=== PATIENT | female | born 1975 | race Caucasian/White ===

== ENCOUNTER 2021-03-28 11:04 | Outpatient (CLI) | payer OTHER, SELFPAY ==
--- NOTE | ~2021-03-28 | XR_ITS ---
EXAMINATION: XR forearm RT 2V EXAM DATE: 03/28/2021 11:44 INDICATION: Pain RT forearm, cervicalgia, thoracic pain, URI TECHNIQUE: Right forearm frontal and lateral projections obtained and reviewed. There is no prior st udy for comparison. FINDINGS: There are no acute right forearm fractures or dislocations identified. There is no subcuta neous gas. The soft tissue is unremarkable. There are no radiopaque foreign bodies. IMPRESSION: 1. Unremarkable XR forearm RT 2V exam. Reviewed, dictated and finalized at location B. 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
--- NOTE | ~2021-03-28 | XR_ITS ---
EXAMINATION: XR_CERV2-3V_CR EXAM DATE: 03/28/2021 11:44 INDICATION: No known recent injury provided at this time. Pain of the cervical spine. TECHNIQUE: Cervical spine frontal, lateral, lateral swimmers, and open-mouth odontoid projections. There is no prior study for comparison. FINDINGS: There is moderate loss of the C5-6 disc height, mild to moderate C6-7 and C7-T1. Mild cerv ical levocurvature, could be positional. Mild to moderate cervical arthropathy. The vertebral bodies are aligned in the AP dimension. The odontoid process is intact. The lateral masses of C1 line up wi th C2. Paraspinal soft tissue is unremarkable. IMPRESSION: 1. Mild to moderate cervical spondylosis. Reviewed, dictated and finalized at location B. 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
--- NOTE | ~2021-03-28 | XR_ITS ---
EXAMINATION: XR thoracic spine 3V EXAM DATE: 03/28/2021 11:44 INDICATION: pain RT forearm, cervicalgia, thoracic pain, URI . TECHNIQUE: Frontal and lateral projections of the thoracic spine as well as lateral swimmers projecti on of the upper thoracic spine for interpretation. There is no prior study for comparison. FINDINGS: Paraspinal soft tissue is unremarkable. Mild mid thoracic spondylosis. The vertebral taz s are aligned in the AP dimension. There are no bony erosions identified. IMPRESSION: Mild mid thoracic spondylosis. Reviewed, dictated and finalized at location B. 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
--- NOTE | ~2021-03-28 | XR_ITS ---
EXAMINATION: XR chest 2V EXAM DATE: 03/28/2021 11:44 INDICATION: Pain RT forearm, cervicalgia, thoracic pain, URI . TECHNIQUE: Frontal and lateral projections of the chest obtained and reviewed. Comparison is made to prior examination from 07/12/2018. FINDINGS: The lungs are clear. There are no pleural effusions. The cardiomediastinal silhouette is within normal limits. There is no pneumothorax suspected. The bones and soft tissues are unremarkab le. IMPRESSION: No acute cardiopulmonary findings. Reviewed, dictated and finalized at location B. 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
[2021-03-28 12:34] LABS: Cholesterol 177 mg/dL (0-200); HDL Direct 32 mg/dL; Triglycerides 70 mg/dL (<150)
[2021-03-28 12:45] LABS: LDL Cholesterol Direct 131 mg/dL
== END 2021-03-28 11:05 | disposition home or self-care (01) ==
PROVIDERS: PCP Physician Assistant; Visit Provider Physician Assistant
DX: M79.631 Pain in right forearm (principal); M54.2 Cervicalgia; M54.6 Pain in thoracic spine; J06.9 Acute upper respiratory infection, unspecified; M47.814 Spondylosis without myelopathy or radiculopathy, thoracic region; M47.812 Spondylosis without myelopathy or radiculopathy, cervical region
CPT/HCPCS: 36415; 71046; 72040; 72072; 73090; 80061

== ENCOUNTER 2023-03-19 09:00 | Outpatient (CLI) | payer OTHER, SELFPAY ==
--- NOTE | 2023-03-19 12:21 | WPDPFTINT ---
PFT Procedure Performed PFT Procedure Performed Spirometry with Pre/Post Bronchodilator Plethysmography (Lung Vol) Diffusing Cap (DLCO) Flow Vol Loop PFT Interpretation This is a pulmonary function test with pre and post-bronchodilator spirometry, plethysmography and diffusing capacity. The test was performed and results interpreted in accordance with the 2019 and 2005 ATS/ERS Task Force guidelines respectively using the Global Lung Function Initiative-2012 reference equations. Patient demonstrated good effort and cooperation. Reproducibility criteria were met. The quality of the pre bronchodilator spirometry maneuver was Grade A and post bronchodilator spirometry maneuver was Grade A. Findings: Spirometry: The contour the inspiratory and expiratory flow tracing are normal. The pre bronchodilator FVC is 2.29 L, 72% predicted. The pre bronchodilator FEV1 is 1.78 L, 69% predicted. The pre bronchodilator FEV1: FVC ratio is 77%. The post bronchodilator FVC is 2.59 L, representing a 13% increase. The post bronchodilator FEV1 is 1.96 L, representing an 11% increase. The post bronchodilator FEV1: FVC ratio 76%. Plethysmography: The total lung capacity is 3.63 L, 79% predicted. The functional residual capacity is 2.02 L, 79% predicted. The residual volume is 1.28 L, 81% predicted. Diffusing capacity: The diffusing capacity unadjusted for hemoglobin and carboxyhemoglobin is 12.1, 55% predicted. The diffusing capacity adjusted for alveolar volume is 3.68, 77% predicted. Impression: The spirometry is normal without evidence of an obstructive abnormality. The lung volumes are normal without evidence of and restrictive abnormality. The FVC is mildly decreased and the FEV1 is moderately decreased without an obstructive or restrictive abnormality. This is an abnormal but nonspecific finding. There is significant improvement after inhaling a single dose of albuterol. The diffusing capacity unadjusted for hemoglobin and carboxyhemoglobin is moderately decreased and normalizes when adjusted for alveolar volume. There are no prior studies for comparison
== END 2023-03-19 09:01 | disposition home or self-care (01) ==
LOC: ANHPFT 09:01
PROVIDERS: PCP Physician Assistant; Visit Provider Physician Assistant
DX: J44.9 Chronic obstructive pulmonary disease, unspecified (principal)
CPT/HCPCS: 94060; 94726; 94729

== ENCOUNTER 2023-05-29 07:49 | Outpatient (CLI) | payer OTHER, SELFPAY ==
--- NOTE | ~2023-05-29 | US_ITS ---
EXAMINATION: US aorta [facility] scr[facility] DATE: 05/29/2023 08:56 INDICATION: Abdominal aortic aneurysm screening with risk factors of nicotine dependence. TECHNIQUE: Grayscale, color Doppler, and pulsed Doppler images of the aorta and common iliac arteries were obtained. COMPARISON: None. FINDINGS: The proximal aorta measures 1.8 cm in AP diameter. The mid aorta measures 1.3 cm AP. The distal aorta measures 1.0 cm AP. The right common iliac artery measures 5 mm. The left common iliac artery measur es 6 mm. IMPRESSION: 1. Normal caliber abdominal aorta. Reviewed, dictated and finalized at location B.
--- NOTE | ~2023-05-29 | CT_ITS ---
EXAMINATION: CT lung screening DATE: 05/29/2023 08:14 INDICATION: NICOTINE DEPENDENT TECHNIQUE: Computed tomography (CT) of the chest was performed without intravenous contrast. Addition al 3D reconstructions utilizing coronal maximum intensity projection (MIP) were performed. Automated exposure control and iterative reconstruction technique were employed. The dose-length product was 56 .24 mGy-cm. COMPARISON: None FINDINGS: Mild emphysema. 2-3 mm left upper lobe nodule on series 4, image 31. No other suspicious pulmonary no dules, pneumonia, pulmonary edema or pleural effusion. Heart size is normal. No pericardial effusion. Normal caliber thoracic aorta. No pathologically enlarged thoracic lymphadenopathy. Visualized upper abdomen is unremarkable. Minimal thoracic dextrocurvature with mild to moderate spondylosis. Small s clerotic bone island at T5. IMPRESSION: 1. Lung-RADS category 2: Benign appearance or behavior. Continue annual screening with noncontrast lo w-dose chest CT in 12 months. Reviewed, dictated and finalized at location B. IMPRESSION: 1. Lung-RADS category 2: Benign appearance or behavior. Continue annual screeni ng with noncontrast low-dose chest CT in 12 months.
== END 2023-05-29 07:50 | disposition home or self-care (01) ==
PROVIDERS: PCP Physician Assistant; Visit Provider Physician Assistant
DX: Z12.2 Encounter for screening for malignant neoplasm of respiratory organs (principal); Z87.891 Personal history of nicotine dependence; Z13.6 Encounter for screening for cardiovascular disorders
CPT/HCPCS: 71271; 76706

== ENCOUNTER 2023-06-10 09:51 | Outpatient (CLI) | payer OTHER, SELFPAY ==
--- NOTE | 2023-06-10 11:00 | NEURO_ITS ---
Impression: # Complains of right wrist pain; possible Carpal Tunnel Syndrome. # Normal Nerve Conduction Study; No Carpal Tunnel Syndrome or ulnar neuropathy. # Normal needle/EMG exam. # Clinical correlation recommended. Nerve Conduction Studies Anti Sensory Summary Table Stim Site NR Peak (ms) P-T Amp (?V) Site1 Site2 Delta-P (ms) Dist (cm) Bishop (m/s) Right Median Anti Sensory (2-3nd Digit) Wrist 2.2 78.8 Wrist 2-3nd Digit 2.2 14.0 64 Wrist 2.1 87.7 Wrist 2-3nd Digit 2.2 14.0 64 Right Radial Anti Sensory (Base 1st Digit) Wrist 1.9 38.2 Wrist Base 1st Digit 1.9 0.0 Right Ulnar Anti Sensory (5th Digit) Wrist 2.1 75.7 Wrist 5th Digit 2.1 14.0 67 Motor Summary Table Stim Site NR Onset (ms) O-P Amp (mV) Site1 Site2 Delta-0 (ms) Dist (cm) Bishop (m/s) Right Median Motor (Abd Poll Brev) Wrist 2.6 6.2 Elbow Wrist 4.4 28.0 64 Elbow 7.0 5.2 Right Ulnar Motor (Abd Dig Minimi) Wrist 2.0 7.8 A Elbow Wrist 4.7 28.0 60 A Elbow 6.7 7.4 F Wave Studies NR F-Lat (ms) L-R F-Lat (ms) Right Median (Mrkrs) (Abd Poll Brev) 23.59 Right Ulnar (Mrkrs) (Abd Dig Min) 23.93 EMG Side Muscle Nerve Root Ins Act Fibs Amp Dur Recrt Comment Right 1stDorInt Ulnar C8-T1 Nml Nml Nml Nml Nml Right Ext Indicis Radial (Post Int) C7-8 Nml Nml Nml Nml Nml Right Ext Digitorum Radial (Post Int) C7-8 Nml Nml Nml Nml Nml Right BrachioRad Radial C5-6 Nml Nml Nml Nml Nml Right PronatorTeres Median C6-7 Nml Nml Nml Nml Nml Right Abd Poll Brev Median C8-T1 Nml Nml Nml Nml Nml Right ABD Dig Min Ulnar C8-T1 Nml Nml Nml Nml Nml MTDD
== END 2023-06-10 09:52 | disposition home or self-care (01) ==
LOC: ANHNEURO 09:52
PROVIDERS: PCP Physician Assistant; Visit Provider Physician Assistant
DX: G56.01 Carpal tunnel syndrome, right upper limb (principal)
CPT/HCPCS: 95886; 95909

== ENCOUNTER 2023-06-23 13:49 | Outpatient (CLI) | payer OTHER, SELFPAY ==
--- NOTE | ~2023-06-23 | MM_ITS ---
EXAMINATION: MM screening bubba BI w carina HISTORY: Screening mammogram TECHNIQUE: Craniocaudal and mediolateral oblique 3-D tomosynthesis images were obtained and synthetic 2-D images were generated. CAD analysis was submitted and interpreted. COMPARISON: No prior mammogram is available for comparison at this institution. BREAST PARENCHYMAL COMPOSITION: There are scattered areas of fibroglandular density. FINDINGS: There is no evidence of suspicious mass, calcification, or architectural distortion to sugg est malignancy in either breast. IMPRESSION: 1. No mammographic evidence of malignancy. 2. Recommend routine screening mammography in one year. BI-RADS Category 1: Negative Reviewed, dictated and finalized at location B.
== END 2023-06-23 13:50 | disposition home or self-care (01) ==
LOC: ANHIMG 13:50
PROVIDERS: PCP Physician Assistant; Visit Provider Physician Assistant
DX: Z12.31 Encounter for screening mammogram for malignant neoplasm of breast (principal)
CPT/HCPCS: 77063; 77067

== ENCOUNTER 2024-01-25 15:12 | Outpatient (CLI) | payer BC, MEDICAID, SELFPAY ==
--- NOTE | 2024-01-25 | ECG_ITS ---
Test Date: 2024-01-25 15:54:39 Measurements Intervals Reform Rate: 80 P: 68 MD: 124 QRS: 26 QRSD: 79 T: 39 QT: 357 QTc: 414 Interpretive Statements SINUS RHYTHM POSSIBLE RIGHT ATRIAL ENLARGEMENT [0.25mV P-WAVE] POSSIBLE LEFT ATRIAL ENLARGEMENT [-0.1mV P-WAVE IN V1/V2] POSSIBLE RIGHT VENTRICULAR CONDUCTION DELAY [RSR (QR) IN V1/V2] No previous ECG available for comparison Electronically Signed On 01-26-2024 14:46:33 MOTOR WINDER by Raegan Cabrera M.D.
--- NOTE | ~2024-01-25 | XR_ITS ---
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 RESULT: Lines, tubes, and devices: None. Lungs and pleura: Clear. Cardiomediastinal silhouette: Stable. Other: No acute osseous or upper abdominal finding. IMPRESSION: No acute cardiopulmonary process. Reviewed, dictated and finalized at location K. ORK OPERATIONS LEAD
== END 2024-01-25 15:13 | disposition home or self-care (01) ==
PROVIDERS: PCP Physician Assistant; Visit Provider Physician Assistant
DX: R05.9 Cough, unspecified (principal); R94.31 Abnormal electrocardiogram [ECG] [EKG]
CPT/HCPCS: 71046; 93005

== ENCOUNTER 2024-02-19 07:32 | Outpatient (CLI) | payer BC, MEDICAID, SELFPAY ==
--- NOTE | 2024-02-19 | ECHO_ITS ---
Patient Info Name: Danuta Magana Age: 48 years : 1975 Gender: Female Ht: 61 in Wt: 120 lbs BSA: 1.54 m2 HR: 95 bpm BP: 121 / 83 mmHg Technical Quality: Good Exam Date: 02/19/2024 8:05 AM Exam Location: Echo Lab Patient Status: Outpatient Admit Date: 02/19/2024 Staff Ordering Physician: Mike, Mireille BETANCOURT Manuscripts Curator: Reina Blair RDCS Attending Provider: Mike, Mireille BETANCOURT Referring Physician: Mike GOEL; Exam Type: CA echo doppler color flow Study Info Indications I51.7 - Cardiomegaly Complete two-dimensional, color flow and Doppler transthoracic echocardiogram is performed. Strain analysis performed. Summary 1. Complete two-dimensional, color flow and Doppler transthoracic echocardiogram is performed. 2. Left ventricular chamber dimension is normal. 3. Left ventricular systolic function is normal with an ejection fraction by Biplane Method of Discs of 57 %. GLS decreased. 4. There is no increased left ventricular wall thickness. 5. The left ventricular diastolic function is grade I diastolic dysfunction. 6. Right ventricular chamber dimension is normal. 7. Right ventricular systolic function is normal. 8. There is no aortic valve stenosis. 9. There is no mitral valve regurgitation. 10. No pulmonary hypertension, estimated pulmonary arterial systolic pressure is 25 mmHg. 11. There is mild tricuspid valve regurgitation. Left Ventricle Left ventricular chamber dimension is normal. Left ventricular systolic function is normal with an ejection fraction by Biplane Method of Discs of 57 %. GLS decreased. There is no increased left ventricular wall thickness. The left ventricular diastolic function is grade I diastolic dysfunction. Right Ventricle Right ventricular chamber dimension is normal. Right ventricular systolic function is normal. Left Atria Left atrial chamber dimension is normal. Right Atria Right atrial chamber dimension is normal. Aortic Valve The aortic valve is trileaflet. There is no aortic valve stenosis. There is no aortic valve regurgitation. Pulmonic Valve The pulmonic valve is normal. Mitral Valve The mitral valve has normal leaflets. There is no mitral valve stenosis. There is no mitral valve regurgitation. Tricuspid Valve The tricuspid valve leaflets are normal. There is no significant tricuspid valve stenosis. There is mild tricuspid valve regurgitation. No pulmonary hypertension, estimated pulmonary arterial systolic pressure is 25 mmHg. Pericardium/Pleural The pericardium appears normal. There is no pericardial effusion. Inferior Vena Cava Normal inferior vena cava with >50% collapse upon inspiration consistent with normal right atrial pressure, 3 mmHg. Left Ventricular Outflow Tract Name Value Normal LVOT 2D LVOT Diameter 1.9 cm LVOT Doppler LVOT Peak Gradient 5 mmHg LVOT Mean Gradient 2 mmHg LVOT VTI 21 cm LVOT VTI/AV VTI Ratio 0.9 LVOT Stroke Volume 58 ml LVOT CO 4.4 l/min LVOT CI 2.8 l/min/m2 Pulmonic Valve Name Value Normal RVOT Doppler RVOT Peak Gradient 2 mmHg PV Doppler PV Peak Gradient 2 mmHg Mitral Valve Name Value Normal MV Doppler MV Decel Larue 320 cm/s2 MV PHT 66 ms MV Area (PHT) 3.3 cm2 4.0-5.0 MV Diastolic Function MV E Peak Velocity 72 cm/s MV A Peak Velocity 80 cm/s MV E/A 0.9 MV Decel Time 227 ms Tricuspid Valve Name Value Normal TV Regurgitation Doppler TR Peak Velocity 233 cm/s TR Peak Gradient 22 mmHg Estimated PAP/RSVP RA Pressure 3 mmHg <=5 PA Systolic Pressure 25 mmHg <36 RV Systolic Pressure 25 mmHg <36 Aorta Name Value Normal Ascending Aorta Ao Root Diameter (MM) 2.1 cm Ao Root Diam Index (MM) 1.4 cm/m2 Aortic Valve Name Value Normal AV Doppler AV Peak Velocity 122 cm/s AV Peak Gradient 6 mmHg AV Mean Gradient 3 mmHg AV VTI 23 cm AV Area (Cont Eq VTI) 2.5 cm2 >=3.0 AV Area (Cont Eq Bishop) 2.4 cm2 AV Regurgitation 2D LVOT Area 2.8 cm2 Ventricles Name Value Normal LV Dimensions 2D/MM IVS Diastolic Thickness (2D) 0.8 cm 0.6-1.0 IVS Diastole Thickness (MM) 0.7 cm 0.6-0.9 LVID Diastole (2D) 4.0 cm 3.8-5.2 LVID Diastole (MM) 4.0 cm 3.8-5.2 LVIW Diastolic Thickness (2D) 0.6 cm 0.6-0.9 LVIW Diastolic Thickness (MM) 0.6 cm 0.6-0.9 LVID Systole (2D) 2.7 cm 2.2-3.5 LVID Systole (MM) 2.2 cm 2.2-3.5 LVOT Diameter 1.9 cm LV Mass (2D Cubed) 77.11 g 67.00-162.00 LV Mass Index (2D Cubed) 50 g/m2 43-95 Relative Wall Thickness (2D) 0.29 LV Mass (MM Cubed) 75.54 g 67.00-162.00 LV Mass Index (MM Cubed) 49 g/m2 43-95 Relative Wall Thickness (MM) 0.30 LV Fractional Shortening/Ejection Fraction 2D/MM LV Fractional Shortening (2D) 34 % 27-45 LV Fractional Shortening (MM) 45 % 27-45 LV EF (MM Teicholz) 77 % 54-74 LV EF (2D Teicholz) 63 % 54-74 LV Diastolic Volume (4C MOD) 49 ml LV EF (4C MOD) 53 % LV Diastolic Volume (2C MOD) 33 ml LV EF (2C MOD) 68 % LV Diastolic Volume (BP MOD) 40 ml 46-106 LV Diastolic Volume Index (BP MOD) 26 ml/m2 29-61 LV Systolic Volume (BP MOD) 17 ml 14-42 LV Systolic Volume Index (BP MOD) 11 ml/m2 8-24 LV EF (BP MOD) 57 % 54-74 LV Diastolic Length (4C) 7.6 cm LV Systolic Length (4C) 6.5 cm LV Stroke Volume (4C MOD) 26 ml Atria Name Value Normal LA Dimensions LA Dimension (MM) 2.7 cm 2.7-3.8 LA Volume (4C A-L) 23 ml LA Volume (BP A-L) 22 ml RA Dimensions RA Area (4C) 8.3 cm2 <=18.0 EchoPAC Name Value Normal AutoEF LVCO_BiP_Q (Bmsp2NZD) 1.6 l/min LVEF_BiP_Q (Nnvk3JGG) 51 % LVSV_BiP_Q (Ldeo7RPB) 21 ml LVVED_BiP_Q (Hoby7MTI) 42 ml LVVES_BiP_Q (Mtog1KRM) 20 ml HR_4Ch_Q (Bhba4CSH) 75 bpm LVCO_4Ch_Q (Uxlm2DJF) 1.7 l/min LVEF_4Ch_Q (Lzlm0WFU) 50 % LVLd_4Ch_Q (Naim8EPJ) 7.3 cm LVLs_4Ch_Q (Wgnl3SVX) 6.2 cm LVSV_4Ch_Q (Jhzn3YFH) 23 ml LVVED_4Ch_Q (Zimn0BZZ) 46 ml LVVES_4Ch_Q (Guof3VCZ) 23 ml HR_2Ch_Q (Lrmv8SEJ) 73 bpm LVCO_2Ch_Q (Xldy7HRP) 1.4 l/min LVEF_2Ch_Q (Lcuf3TOM) 52 % LVLd_2Ch_Q (Jmvi7QFU) 7.1 cm LVLs_2Ch_Q (Aidz1BGR) 5.8 cm LVSV_2Ch_Q (Ohdc7ZRZ) 19 ml LVVED_2Ch_Q (Kjsw1UQO) 37 ml LVVES_2Ch_Q (Krgd3NTY) 18 ml BRANDON AA peak sys SL (AWMA) 13.8 % AAS peak sys SL (AWMA) 20.5 % AI peak sys SL (AWMA) 22.5 % AL peak sys SL (AWMA) 23.2 % AP peak sys SL (AWMA) 21.2 % peak sys SL (AWMA) 21.4 % AVC (AWMA) 382 ms BA peak sys SL (AWMA) 13.0 % BAS peak sys SL (AWMA) 13.2 % BI peak sys SL (AWMA) 15.1 % BL peak sys SL (AWMA) 13.8 % BP peak sys SL (AWMA) 11.8 % BS peak sys SL (AWMA) 9.1 % G peak SL(A2C) (AWMA) 15.4 % G peak SL(A4C) (AWMA) 15.8 % G peak SL(APLAX) (AWMA) 15.9 % G peak SL(Avg) (AWMA) 15.7 % MA peak sys SL (AWMA) 10.3 % MAS peak sys SL (AWMA) 15.8 % VA peak sys SL (AWMA) 16.7 % ML peak sys SL (AWMA) 17.0 % MP peak sys SL (AWMA) 14.6 % MS peak sys SL (AWMA) 15.2 % Report Signatures
== END 2024-02-19 07:33 | disposition home or self-care (01) ==
LOC: ANHCARD 07:35
PROVIDERS: PCP Physician Assistant; Visit Provider Physician Assistant
DX: I07.1 Rheumatic tricuspid insufficiency (principal)
CPT/HCPCS: 93306

== ENCOUNTER 2024-10-26 20:42 | Emergency (ER) | payer BC, SELFPAY ==
[2024-10-26 20:43] VITALS: BP 128/82; PULSE 82; RESP 18; TEMP 36.6; O2SAT 98
[2024-10-26 21:08] VITALS: BP 130/80; PULSE 80; RESP 17; TEMP 36.6; O2SAT 99
--- NOTE | 2024-10-26 21:14 | ED_ITS ---
HPI - Dental/Oral General Chief complaint: Dental/Oral Stated complaint: dental pain, facial swelling Time Seen by Provider: 10/26/24 21:06 Source: patient Mode of arrival: ambulatory Limitations: no limitations History of Present Illness HPI Narrative: This is a 49-year-old female that presents emergency department for dentalgia. Ongoing since earlier this morning. Reports facial swelling in the area. Denies fevers. MD Complaint: tooth pain Location: Tooth # (14) Related Data Allergies Allergy/AdvReac Type Severity Reaction Status Date / Time amoxicillin Allergy Unknown Unknown Verified 10/26/24 20:50 ampicillin Allergy Unknown Unknown Verified 10/26/24 20:50 cephalexin Allergy Unknown Unknown Verified 10/26/24 20:50 clavulanic acid Allergy Unknown Unknown Verified 10/26/24 20:50 codeine Allergy Unknown Unknown Verified 10/26/24 20:50 ketorolac Allergy Unknown Unknown Verified 10/26/24 20:50 morphine Allergy Unknown Unknown Verified 10/26/24 20:50 Penicillins Allergy Unknown Unknown Verified 10/26/24 20:50 tramadol Allergy Unknown Unknown Verified 10/26/24 20:50 Review of Systems Review of Systems: All systems reviewed & are unremarkable except as noted in HPI and below Exam Narrative: GENERAL: Well-appearing, well-nourished, and in no acute distress. HEAD: Normocephalic, atraumatic. EYES: EOMI. ENT: Nares clear, no rhinorrhea or epistaxis. Mucous membranes moist. Oropharynx without tonsillar hypertrophy exudate or other lesions. Bilateral TMs pearly cuellar non-bulging. Poor dentition. Several decaying teeth. Mild left sided facial swelling. No erythema or fluctuance to suggest abscess NECK: Supple. No adenopathy or masses. CHEST: No respiratory distress. HEART: Regular rate EXTREMITIES: Normal range of motion. No edema. SKIN: Warm, dry, no rash. NEURO: No focal deficits. Alert and oriented x3. PSYCH: Normal mood and affect Course Vital Signs Vital signs: Vital Signs Temperature 97.8 F 10/26/24 20:43 Pulse Rate 82 10/26/24 20:43 Respiratory Rate 18 10/26/24 20:43 Blood Pressure 128/82 10/26/24 20:43 Pulse Oximetry 98 10/26/24 20:43 Oxygen Delivery Room Air 10/26/24 20:43 Temperature 97.8 F 10/26/24 21:08 Pulse Rate 80 10/26/24 21:08 Respiratory Rate 17 10/26/24 21:08 Blood Pressure 130/80 10/26/24 21:08 Pulse Oximetry 99 10/26/24 21:08 Oxygen Delivery Room Air 10/26/24 20:43 MDM - Dental/Oral MDM Narrative Medical decision making narrative: Patient presents the emergency department for dentalgia. She is afebrile and nontoxic appearing. No edema or fluctuance to suggest abscess. Patient will be started on oral antibiotics. Instructed on the importance of seeing a dentist. She was given warnings to return to the ER Differential Diagnosis Differential diagnosis: Likely dental caries, toothache, dental abscess and fracture of tooth Critical Care Time Critical Care Time Critical Care Time: No Discharge Plan Discharge Clinical Impression: Toothache Patient Disposition: Home Condition: Stable Instructions: Antibiotic Form, Toothache (ED) Additional Instructions: Return to the Emergency Department if you experience fever >101, increasing swelling and redness of your tooth, or any other symptoms that are concerning to you Take antibiotic as prescribed. Follow up with your dentist Patient Language: Citizen Of [place] Prescriptions: New clindamycin HCl [Cleocin HCl] 300 mg capsule 300 mg PO Q8H 7 Days Qty: 21 0RF Follow-up/Referrals: Mike,SERAFIN Baker [Primary Care Provider, Family Practice]
[2024-10-26] MEDS: CLINDAMYCIN HCL 150 MG CAP 450 MG PO (21:25)
== END 2024-10-26 21:32 | disposition home or self-care (01) ==
LOC: ANHED 21:28
PROVIDERS: Emergency Provider Physician Assistant; PCP Physician Assistant
DX: K08.89 Other specified disorders of teeth and supporting structures (principal)
CPT/HCPCS: 99283

== ENCOUNTER 2025-01-03 09:28 | Emergency (ER) | payer BC, SELFPAY ==
[2025-01-03] VITALS (8 sets, daily range): BP systolic 131–161; BP diastolic 79–99; PULSE 85–101; RESP 18–20; TEMP 36.7; O2SAT 96–98
--- NOTE | ~2025-01-03 | XR_ITS ---
EXAMINATION: XR chest 2V DATE: 01/03/2025 11:34 INDICATION: Upper respiratory tract infection. Left-sided chest pain. TECHNIQUE: PA and lateral views of the chest were obtained. COMPARISON: Chest radiograph dated 01/25/2024 FINDINGS: The lungs remain clear with no focal airspace opacities, pulmonary edema, pleural effusion or pneumothorax. The cardiomediastinal silhouette is normal. Pectus excavatum. IMPRESSION: 1. No acute cardiopulmonary disease. Reviewed, dictated and finalized at location A. 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
--- NOTE | 2025-01-03 10:27 | ED_ITS ---
HPI - General Adult General Chief complaint: Upper Respiratory Infection Stated complaint: left lung pain sinus congestion Time Seen by Provider: 01/03/25 09:56 History of Present Illness HPI narrative: 49-year-old female with significant smoking history presented to the emergency department for evaluation for worsening cough congestion and sinus congestion this been worsening since Thursday. The patient does have a significant cough at time of initial evaluation. Related Data Allergies Allergy/AdvReac Type Severity Reaction Status Date / Time amoxicillin Allergy Unknown Unknown Verified 10/26/24 20:50 ampicillin Allergy Unknown Unknown Verified 10/26/24 20:50 cephalexin Allergy Unknown Unknown Verified 10/26/24 20:50 clavulanic acid Allergy Unknown Unknown Verified 10/26/24 20:50 codeine Allergy Unknown Unknown Verified 10/26/24 20:50 ketorolac Allergy Unknown Unknown Verified 10/26/24 20:50 morphine Allergy Unknown Unknown Verified 10/26/24 20:50 Penicillins Allergy Unknown Unknown Verified 10/26/24 20:50 tramadol Allergy Unknown Unknown Verified 10/26/24 20:50 Review of Systems Review of Systems: All systems reviewed & are unremarkable except as noted in HPI and below Exam Narrative: APPEARANCE: ill-appearing HEAD: normocephalic, atraumatic. EYES: PERRLA/EOMI, conjunctivae clear. NOSE: Normal no drainage EARS:TMS clear with good light reflex. THROAT: Pharynx clear, no exudate. NECK: Supple. No adenopathy, no masses. RESPIRATORY: expiratory wheeze CARDIOVASCULAR: Regular rate and rhythm without murmurs rubs or gallops. ABDOMINAL: Soft, nontender, nondistended, normal bowel sounds MUSCULOSKELETAL: Moves all extremities. Strength/ROM intact, No edema, No calf tenderness. NEURO: Alert. Cranial nerves II through XII intact. Good gait. Good coordination SKIN: Warm, dry. Normal Color Course Vital Signs Vital signs: Vital Signs Temperature 98.1 F 01/03/25 09:36 Pulse Rate 101 H 01/03/25 09:36 Respiratory Rate 18 01/03/25 09:36 Blood Pressure 161/99 H 01/03/25 09:36 Pulse Oximetry 97 01/03/25 09:36 Temperature 98.1 F 01/03/25 09:36 Pulse Rate 91 01/03/25 15:24 Respiratory Rate 18 01/03/25 15:24 Blood Pressure 143/79 H 01/03/25 15:36 Pulse Oximetry 96 01/03/25 15:24 Medical Decision Making MDM Narrative Medical decision making narrative: 49-year-old female present to the emergency department for evaluation for increased cough congestion associated shortness of breath. Patient is a smoker. patient states she has not smoked in the last few days. Patient had extensive wheeze on initial exam and was treated with oral prednisone and 5 mg of nebulized albuterol. On re-evaluation patient is sounds significantly improved. Patient's chest x-rays shows no evidence of acute pneumonia. Patient will be treated as a pneumonia/ COPD exacerbation. Patient does have multiple medication allergies. Patient will be started on doxycycline. The patient was also advised to utilize a spacer for her albuterol. Differential Diagnosis Differential Diagnosis: COVID, RSV, influenza, pneumonia, COPD Vital Signs Vital Signs: Vital Signs Temperature 98.1 F 01/03/25 09:36 Pulse Rate 101 H 01/03/25 09:36 Respiratory Rate 18 01/03/25 09:36 Blood Pressure 161/99 H 01/03/25 09:36 Pulse Oximetry 97 01/03/25 09:36 Temperature 98.1 F 01/03/25 09:36 Pulse Rate 91 01/03/25 15:24 Respiratory Rate 18 01/03/25 15:24 Blood Pressure 143/79 H 01/03/25 15:36 Pulse Oximetry 96 01/03/25 15:24 Lab Data Lab results reviewed: Yes I reviewed the patient's lab results. Labs: Lab Results 01/03/25 Range/Units 09:47 Influenza A (RT-PCR) Negative (Negative) Influenza B (RT-PCR) Negative (Negative) RSV (RT-PCR) Negative (Negative) SARS-CoV-2 RNA (RT-PCR) Negative (Negative) Imaging Data Attestation: I personally reviewed and interpreted this imaging study as follows: My impression: Chest x-ray: No acute cardiopulmonary abnormality Radiologist's impression: Impressions Chest X-Ray 01/03/25 11:36 IMPRESSION: 1. No acute cardiopulmonary disease. Discharge Plan Discharge Clinical Impression: COPD exacerbation, Pneumonia Patient Disposition: Home Condition: Stable Instructions: Antibiotic Form, Pneumonia (ED) Additional Instructions: Prednisone as directed until completed. Doxycycline as directed for the next 7 days. Albuterol as needed for shortness of breath, utilize a spacer Patient Language: Malagasy Prescriptions: New doxycycline monohydrate 100 mg capsule 100 mg PO BID 7 Days Qty: 14 0RF prednisone 50 mg tablet 50 mg PO DAILY 5 Days Qty: 5 0RF albuterol sulfate 90 mcg/actuation HFA aerosol inhaler 1 puff inhalation QID Qty: 6.7 0RF No Action clindamycin HCl [Cleocin HCl] 300 mg capsule 300 mg PO Q8H 7 Days Qty: 21 0RF Follow-up/Referrals: Mike,SERAFIN Baker [Non-Staff, Family Practice] Stand Alone Forms: Work/School Release IP
[2025-01-03] MEDS: BENZONATATE 100 MG CAPSULE 200 MG PO (10:31)
[2025-01-03 10:34] LABS: Influenza A QL RT-PCR Negative (Negative); Influenza B QL RT-PCR Negative (Negative); RSV RNA, RT-PCR Negative (Negative); SARS-CoV-2 RNA PCR Negative (Negative)
[2025-01-03] MEDS: ALBUTEROL SULFATE NEB 2.5 MG/3 ML INH 5 MG INHALATION (10:40)
[2025-01-03] MEDS: AZITHROMYCIN 250 MG TABLET 500 MG PO (15:29)
== END 2025-01-03 15:41 | disposition home or self-care (01) ==
PROVIDERS: Physician Assistant; Emergency Provider Emergency Medicine
DX: J44.1 Chronic obstructive pulmonary disease with (acute) exacerbation (principal); J18.9 Pneumonia, unspecified organism; Z20.822 Contact with and (suspected) exposure to COVID-19; F17.210 Nicotine dependence, cigarettes, uncomplicated
CPT/HCPCS: 71046; 87637; 94640; 99283; A9270; J7512